=== PATIENT | female | born 1960 | race Two or more races ===

== ENCOUNTER 2022-09-25 12:12 | Emergency (ER) | payer OTHER, SELFPAY ==
[2022-09-25] MEDS ORDERED: Ketorolac Tromethamine 30 MG/ML VIAL ONE (13:11)
== END 2022-09-25 17:06 | disposition home or self-care (01) ==
LOC: ERS 12:12
DX: S52.302A Unspecified fracture of shaft of left radius, initial encounter for closed fracture (principal); I10 Essential (primary) hypertension; E11.9 Type 2 diabetes mellitus without complications; E78.5 Hyperlipidemia, unspecified; W01.0XXA Fall on same level from slipping, tripping and stumbling without subsequent striking against object, initial encounter
CPT/HCPCS: 29125; 96374; J1885

== ENCOUNTER 2022-10-01 10:01 | Inpatient (IN) | payer OTHER, BC ==
[2022-10-01] MEDS ORDERED: Acetaminophen 500 MG TAB ONE (10:35)
[2022-10-01 15:33] LABS: #Basophils 0.1 thou/uL (0.0-0.2); #Eosinphils 0.1 thou/uL (0.0-0.7); #Lymphocytes 1.9 thou/uL (1.20-3.40); #Monocytes 0.4 thou/uL (0.11-0.59); #Neutrophils 5.9 thou/uL (1.40-6.50); %Basophils 0.6 % (0.0-1.0); %Eosinophils 1.2 % (0.0-10.0); %Lymphocytes 22.6 % (21.0-51.0); %Monocytes 4.8 % (0.0-10.0); %Neutrophils 70.8 % (42.0-75.0); Mean Corpuscular HGB CONC 32.4 g/dL (32.0-36.0); Mean Corpuscular Hemoglobin 30.5 pg (27.0-31.0); Mean Platelet Volume 8.1 fL (7.4-10.4); Platelet Count 235 thou/uL (130-400); RBC Distribution Width 11.9 % (11.5-14.5); Red Blood Cell (RBC) Count 4.27 mill/uL (4.20-5.40); White Blood Cell (WBC) Count 8.3 thou/uL (4.8-10.8)
[2022-10-01 15:54] LABS: ALT (SGPT) 30 U/L (8-55); AST (SGOT) 23 U/L (5-34); Albumin 3.8 g/dL (3.4-4.8); Alkaline Phosphatase 58 U/L (40-110); Anion Gap 10 mmol/L (10-20); BUN (Urea Nitrogen) 17 mg/dL (9.8-20.1); Bilirubin, Total 0.5 mg/dL (0.2-1.2); Calc. Creatinine Clearance 0 mL/min (70-130); Calcium 9.1 mg/dL (7.8-10.44); Carbon Dioxide 28 mmol/L (23-31); Chloride 105 mmol/L (98-107); Estimated GFR 94; Globulin 2.6 g/dL (2.4-3.5); Glucose 132 mg/dL (80-115); Magnesium 1.8 mg/dL (1.6-2.6); Potassium 3.9 mmol/L (3.5-5.1); Protein, Total 6.4 g/dL (5.8-8.1); Sodium 139 mmol/L (136-145)
[2022-10-01] MEDS ORDERED: Dextrose 5% in Water 1,000 ML IV PRN (16:20)
[2022-10-01] MEDS ORDERED: Insulin Regular 300 UNITS/3 ML VIAL SC PRN ×2 (16:20)
[2022-10-01] MEDS ORDERED: TETANUS, DIPHTHERIA TOX,ADULT (TDVAX) 0.5 ML VIAL IM ONE (16:20)
[2022-10-01] MEDS ORDERED: Dextrose 50% Abboject 50 ML SYRINGE SLOW IVP PRN (16:20)
[2022-10-01] MEDS ORDERED: Ondansetron PF 4 MG/2 ML Vial IVP PRN (16:20)
[2022-10-01] MEDS: Morphine 4 MG/ML VIAL SLOW IVP PRN (19:29)
[2022-10-01] MEDS: traMADol HCl 50 MG TAB PO SCH ×2 (22:00→23:00)
[2022-10-01] MEDS: Acetaminophen 500 MG TAB PO SCH ×2 (22:00→23:00)
[2022-10-01] MEDS: Gabapentin 300 MG CAP PO SCH (22:02)
[2022-10-01] MEDS: Senokot S 8.6-50 MG TAB PO SCH (22:02)
[2022-10-01] MEDS: Famotidine 20 MG TAB PO SCH (22:02)
[2022-10-01] MEDS: Cyclobenzaprine 10 MG TAB PO PRN (22:14)
[2022-10-01 22:39] VITALS: BMI 45.8
[2022-10-01 23:41] LABS: SARS-CoV-2 NAA Rapid Test Not Detected (NotDetected)
[2022-10-02] MEDS ORDERED: Sodium Chloride 0.9% 1,000 ML IV SCH ×2 (00:01→16:15)
[2022-10-02] MEDS ORDERED: CEFAZOLIN 2 GM in Sodium Chloride 0.9% 100 ML IVPB SCH (04:15)
[2022-10-02 05:37] LABS: #Eosinphils 0.3 thou/uL (0.0-0.7); #Lymphocytes 2.7 thou/uL (1.20-3.40); #Monocytes 0.7 thou/uL (0.11-0.59); #Neutrophils 6.9 thou/uL (1.40-6.50); %Basophils 0.5 % (0.0-1.0); %Eosinophils 2.4 % (0.0-10.0); %Lymphocytes 25.6 % (21.0-51.0); %Monocytes 6.4 % (0.0-10.0); %Neutrophils 65.2 % (42.0-75.0); Hemoglobin 15.1 g/dL (12.0-16.0); Mean Corpuscular HGB CONC 32.8 g/dL (32.0-36.0); Mean Corpuscular Hemoglobin 31.2 pg (27.0-31.0); Mean Corpuscular Volume 95.1 fl (78.0-98.0); Mean Platelet Volume 8.1 fL (7.4-10.4); Platelet Count 245 thou/uL (130-400); Red Blood Cell (RBC) Count 4.83 mill/uL (4.20-5.40); White Blood Cell (WBC) Count 10.6 thou/uL (4.8-10.8)
[2022-10-02] MEDS: traMADol HCl 50 MG TAB PO SCH ×4 (05:41→23:31)
[2022-10-02] MEDS: Acetaminophen 500 MG TAB PO SCH ×4 (05:41→23:32)
[2022-10-02 05:43] LABS: INR-International Normal Ratio 1.1; PTT 33.7 sec (22.9-36.1); Prothrombin Time 14.3 sec (12.0-14.7)
[2022-10-02] MEDS ORDERED: Clindamycin/D5W 900 MG in Premix Bag 1 BAG IVPB SCH (06:00)
[2022-10-02 06:22] LABS: Anion Gap 13 mmol/L (10-20); BUN (Urea Nitrogen) 14 mg/dL (9.8-20.1); Calc. Creatinine Clearance 161 mL/min (70-130); Calcium 9.2 mg/dL (7.8-10.44); Carbon Dioxide 20 mmol/L (23-31); Chloride 106 mmol/L (98-107); Estimated GFR 98; Glucose 128 mg/dL (80-115); Magnesium 1.8 mg/dL (1.6-2.6); Phosphorus 3.8 mg/dL (2.3-4.7); Potassium 4.3 mmol/L (3.5-5.1); Sodium 135 mmol/L (136-145)
[2022-10-02 06:28] LABS: Bacteria/HPF None Seen HPF (None Seen); Bilirubin Negative (Negative); Blood, Urine Negative (Negative); Clarity Clear (Clear); Glucose, Urine (Dipstick) Normal (Negative); Ketone, Urine Trace mg/dL (Negative); Leukocyte Negative Leu/uL (Negative); Nitrite Negative (Negative); Protein, Urine (Dipstick) Negative (Neg-Trace); RBC/HPF None Seen HPF (0-3); Specific Gravity, Urine 1.022 (1.002-1.036); Squamous Epithelial None Seen HPF (0-3); Urobilinogen Normal mg/dL (Less than 2); WBC/HPF 0-3 HPF (0-3); pH, Urine 5.5 (5.0-9.0)
[2022-10-02] MEDS ORDERED: fentaNYL PF 100 MCG/2 ML SYRINGE ONE (06:43)
[2022-10-02] MEDS ORDERED: Midazolam HCl 2 mg/2 ml Vial ONE ×2 (07:02→07:11)
[2022-10-02] MEDS ORDERED: FENTANYL 50 MCG/ML 1 ML VIAL ONE ×2 (07:02→07:11)
[2022-10-02] MEDS ORDERED: Ropivacaine 0.5% HCl/PF (150 MG/30 ML VIAL) ONE (07:02)
[2022-10-02] MEDS ORDERED: NEOSTIGMINE 3 MG/3 ML SYR 3 MG/3 ML SYRINGE ONE (07:15)
[2022-10-02] MEDS ORDERED: Ketorolac Tromethamine 30 MG/ML VIAL ONE (07:15)
[2022-10-02] MEDS ORDERED: Glycopyrrolate 0.2 MG/ML 5 ML SYRINGE ONE (07:15)
[2022-10-02] MEDS ORDERED: Rocuronium Bromide 10 MG/ML (10ML VIAL) ONE (07:15)
[2022-10-02] MEDS ORDERED: diphenhydrAMINE 50 MG/ML VIAL ONE (07:15)
[2022-10-02] MEDS ORDERED: PROPOFOL 200 MG/20 ML VIAL ONE (07:15)
[2022-10-02] MEDS ORDERED: Ondansetron PF 4 MG/2 ML Vial ONE (07:15)
[2022-10-02] MEDS ORDERED: Clindamycin/D5W 900 mg/50 ml Premix Bag ONE (07:22)
[2022-10-02] MEDS ORDERED: Promethazine HCl 25 MG/ML VIAL IVPB PRN (07:41)
[2022-10-02] MEDS ORDERED: Promethazine HCl 25 MG/ML VIAL IM PRN (07:41)
[2022-10-02] MEDS ORDERED: Meperidine HCl/PF 25 MG/ML VIAL SLOW IVP PRN (07:41)
[2022-10-02] MEDS ORDERED: HYDROmorphone 2 MG/ML VIAL SLOW IVP PRN (07:41)
[2022-10-02] MEDS ORDERED: FLU VACC QS2022-23(6MOS UP)/PF 60 MCG/0.5 ML SYRINGE IM ONE (09:00)
[2022-10-02] MEDS: Senokot S 8.6-50 MG TAB PO SCH ×2 (12:05→20:27)
[2022-10-02] MEDS: Gabapentin 300 MG CAP PO SCH ×3 (12:05→20:25)
[2022-10-02] MEDS: Famotidine 20 MG TAB PO SCH ×2 (12:06→20:24)
[2022-10-02] MEDS: Polyethylene Glycol 3350 17 GM Packet PO SCH (15:53)
[2022-10-02] MEDS: Clindamycin/D5W 900 MG in Premix Bag 1 BAG IVPB SCH ×2 (16:01→23:33)
[2022-10-02] MEDS ORDERED: Sodium Chloride 0.9% 500 ML IV SCH (16:30)
[2022-10-02] MEDS: Sodium Chloride 0.9% 1,000 ML IV SCH (17:04)
[2022-10-02] MEDS: traMADol HCl 50 MG TAB PO PRN (20:24)
[2022-10-03] MEDS: Morphine 4 MG/ML VIAL SLOW IVP PRN ×2 (00:46→03:29)
[2022-10-03] MEDS: Sodium Chloride 0.9% 1,000 ML IV SCH ×2 (00:58→07:19)
[2022-10-03] MEDS: Acetaminophen 500 MG TAB PO SCH ×3 (05:24→17:06)
[2022-10-03] MEDS: traMADol HCl 50 MG TAB PO SCH ×3 (05:26→17:07)
[2022-10-03 06:36] LABS: #Eosinphils 0.2 thou/uL (0.0-0.7); #Lymphocytes 1.9 thou/uL (1.20-3.40); #Monocytes 0.8 thou/uL (0.11-0.59); %Basophils 0.4 % (0.0-1.0); %Eosinophils 1.9 % (0.0-10.0); %Lymphocytes 17.5 % (21.0-51.0); %Monocytes 7.5 % (0.0-10.0); %Neutrophils 72.7 % (42.0-75.0); Mean Corpuscular HGB CONC 32.6 g/dL (32.0-36.0); Mean Corpuscular Hemoglobin 30.8 pg (27.0-31.0); Mean Corpuscular Volume 94.4 fl (78.0-98.0); Mean Platelet Volume 8.4 fL (7.4-10.4); Platelet Count 196 thou/uL (130-400); Red Blood Cell (RBC) Count 3.57 mill/uL (4.20-5.40)
[2022-10-03 06:54] LABS: Anion Gap 11 mmol/L (10-20); BUN (Urea Nitrogen) 16 mg/dL (9.8-20.1); Calc. Creatinine Clearance 157 mL/min (70-130); Calcium 8.5 mg/dL (7.8-10.44); Carbon Dioxide 24 mmol/L (23-31); Chloride 102 mmol/L (98-107); Estimated GFR 95; Glucose 134 mg/dL (80-115); Magnesium 1.6 mg/dL (1.6-2.6); Phosphorus 3.2 mg/dL (2.3-4.7); Potassium 3.9 mmol/L (3.5-5.1); Sodium 133 mmol/L (136-145)
[2022-10-03] MEDS ORDERED: Potassium Chloride 20 MEQ TAB PO SCH (08:30)
[2022-10-03] MEDS: Clindamycin/D5W 900 MG in Premix Bag 1 BAG IVPB SCH (08:30)
[2022-10-03] MEDS: Atorvastatin Calcium 20 MG TAB PO SCH (08:31)
[2022-10-03] MEDS: Magnesium Oxide 400 MG TAB PO SCH (08:31)
[2022-10-03] MEDS: Famotidine 20 MG TAB PO SCH ×2 (08:31→20:21)
[2022-10-03] MEDS: Senokot S 8.6-50 MG TAB PO SCH ×2 (08:31→20:21)
[2022-10-03] MEDS: FLUoxetine HCl 20 MG CAP PO SCH (08:31)
[2022-10-03] MEDS: Ascorbic Acid 500 mg Chewable Tablet PO SCH ×2 (09:04→20:20)
[2022-10-03] MEDS: Cyclobenzaprine 10 MG TAB PO PRN (09:04)
[2022-10-03] MEDS: Gabapentin 300 MG CAP PO SCH ×3 (09:53→20:20)
[2022-10-03] MEDS: traMADol HCl 50 MG TAB PO PRN ×2 (12:54→17:08)
[2022-10-03] MEDS: Ferrous Sulfate 325 MG TAB PO SCH (17:05)
[2022-10-03] MEDS: Polyethylene Glycol 3350 17 GM Packet PO SCH (17:05)
[2022-10-04] MEDS: traMADol HCl 50 MG TAB PO SCH ×5 (00:03→23:22)
[2022-10-04] MEDS: Acetaminophen 500 MG TAB PO SCH ×5 (00:05→23:22)
[2022-10-04] MEDS: traMADol HCl 50 MG TAB PO PRN (04:52)
[2022-10-04 06:30] LABS: #Eosinphils 0.3 thou/uL (0.0-0.7); #Lymphocytes 1.9 thou/uL (1.20-3.40); #Monocytes 0.7 thou/uL (0.11-0.59); #Neutrophils 5.3 thou/uL (1.40-6.50); %Basophils 0.5 % (0.0-1.0); %Eosinophils 3.6 % (0.0-10.0); %Monocytes 8.2 % (0.0-10.0); %Neutrophils 64.7 % (42.0-75.0); Hemoglobin 11.6 g/dL (12.0-16.0); Mean Corpuscular HGB CONC 32.1 g/dL (32.0-36.0); Mean Corpuscular Hemoglobin 30.8 pg (27.0-31.0); Mean Corpuscular Volume 95.8 fl (78.0-98.0); Mean Platelet Volume 8.4 fL (7.4-10.4); Platelet Count 187 thou/uL (130-400); RBC Distribution Width 11.8 % (11.5-14.5); Red Blood Cell (RBC) Count 3.77 mill/uL (4.20-5.40); White Blood Cell (WBC) Count 8.2 thou/uL (4.8-10.8)
[2022-10-04 06:52] LABS: Anion Gap 10 mmol/L (10-20); BUN (Urea Nitrogen) 10 mg/dL (9.8-20.1); Calc. Creatinine Clearance 153 mL/min (70-130); Calcium 8.8 mg/dL (7.8-10.44); Carbon Dioxide 24 mmol/L (23-31); Chloride 107 mmol/L (98-107); Estimated GFR 92; Glucose 124 mg/dL (80-115); Magnesium 1.7 mg/dL (1.6-2.6); Phosphorus 2.9 mg/dL (2.3-4.7); Potassium 4.1 mmol/L (3.5-5.1); Sodium 137 mmol/L (136-145)
[2022-10-04] MEDS ORDERED: PHOS-NAK 1 PKT PACK PO SCH (08:00)
[2022-10-04] MEDS ORDERED: Magnesium 2 GM/50 ML(in water) 2 GM in Premix Bag 1 BAG IVPB SCH (08:00)
[2022-10-04] MEDS: Senokot S 8.6-50 MG TAB PO SCH ×2 (08:00→20:12)
[2022-10-04] MEDS: Ascorbic Acid 500 mg Chewable Tablet PO SCH ×2 (08:13→20:11)
[2022-10-04] MEDS: FLUoxetine HCl 20 MG CAP PO SCH (08:13)
[2022-10-04] MEDS: Polyethylene Glycol 3350 17 GM Packet PO SCH (08:14)
[2022-10-04] MEDS: Gabapentin 300 MG CAP PO SCH ×3 (08:14→20:10)
[2022-10-04] MEDS: Ferrous Sulfate 325 MG TAB PO SCH ×2 (08:15→16:06)
[2022-10-04] MEDS: Magnesium Oxide 400 MG TAB PO SCH (08:15)
[2022-10-04] MEDS: Famotidine 20 MG TAB PO SCH ×2 (08:15→20:11)
[2022-10-04] MEDS: Atorvastatin Calcium 20 MG TAB PO SCH (08:15)
[2022-10-04] MEDS: Enoxaparin Sodium 40 MG/0.4 ML SYRINGE SC SCH (08:16)
[2022-10-04] MEDS: metFORMIN 500 MG TAB PO SCH (16:06)
[2022-10-04] MEDS: glyBURIDE 5 MG TAB PO SCH (16:06)
[2022-10-05] MEDS: traMADol HCl 50 MG TAB PO SCH ×4 (06:13→23:56)
[2022-10-05] MEDS: glyBURIDE 5 MG TAB PO SCH ×2 (06:13→16:28)
[2022-10-05] MEDS: Acetaminophen 500 MG TAB PO SCH ×4 (06:14→23:56)
[2022-10-05] MEDS: Pioglitazone HCl 15 MG TAB PO SCH (08:05)
[2022-10-05] MEDS: Famotidine 20 MG TAB PO SCH ×2 (08:07→20:38)
[2022-10-05] MEDS: Gabapentin 300 MG CAP PO SCH ×3 (08:07→20:38)
[2022-10-05] MEDS: Ferrous Sulfate 325 MG TAB PO SCH ×3 (08:07→20:38)
[2022-10-05] MEDS: metFORMIN 500 MG TAB PO SCH ×2 (08:07→16:29)
[2022-10-05] MEDS: Magnesium Oxide 400 MG TAB PO SCH (08:08)
[2022-10-05] MEDS: Senokot S 8.6-50 MG TAB PO SCH ×2 (08:08→20:38)
[2022-10-05] MEDS: FLUoxetine HCl 20 MG CAP PO SCH (08:08)
[2022-10-05] MEDS: Atorvastatin Calcium 20 MG TAB PO SCH (08:08)
[2022-10-05] MEDS: Ascorbic Acid 500 mg Chewable Tablet PO SCH ×2 (08:09→20:38)
[2022-10-05] MEDS: Enoxaparin Sodium 40 MG/0.4 ML SYRINGE SC SCH (08:09)
[2022-10-05] MEDS: Polyethylene Glycol 3350 17 GM Packet PO SCH (08:09)
[2022-10-06] MEDS: Acetaminophen 500 MG TAB PO SCH ×3 (05:29→17:45)
[2022-10-06] MEDS: traMADol HCl 50 MG TAB PO SCH ×3 (05:29→17:45)
[2022-10-06] MEDS: glyBURIDE 5 MG TAB PO SCH (05:30)
[2022-10-06] MEDS: Ferrous Sulfate 325 MG TAB PO SCH ×2 (08:37→08:38)
[2022-10-06] MEDS: Pioglitazone HCl 15 MG TAB PO SCH (08:37)
[2022-10-06] MEDS: Gabapentin 300 MG CAP PO SCH ×2 (08:38→16:21)
[2022-10-06] MEDS: FLUoxetine HCl 20 MG CAP PO SCH (08:38)
[2022-10-06] MEDS: Polyethylene Glycol 3350 17 GM Packet PO SCH (08:39)
[2022-10-06] MEDS: Senokot S 8.6-50 MG TAB PO SCH (08:39)
[2022-10-06] MEDS: Enoxaparin Sodium 40 MG/0.4 ML SYRINGE SC SCH (08:39)
[2022-10-06] MEDS: Magnesium Oxide 400 MG TAB PO SCH (08:39)
[2022-10-06] MEDS: Ascorbic Acid 500 mg Chewable Tablet PO SCH (08:39)
[2022-10-06] MEDS: metFORMIN 500 MG TAB PO SCH ×2 (08:40→16:21)
[2022-10-06] MEDS: Famotidine 20 MG TAB PO SCH (08:40)
[2022-10-06] MEDS: Atorvastatin Calcium 20 MG TAB PO SCH (08:40)
[2022-10-06] MEDS: traMADol HCl 50 MG TAB PO PRN (08:52)
[2022-10-07 02:38] VITALS: BP 128/75; TEMP 98.1
== END 2022-10-06 19:00 | DRG 511 ==
LOC: ERS 10:01 → SURG B 16:24
PROVIDERS: ADMIT Specialist; ATTEND Specialist
PROC: 2W3QXYZ Immobilization of Right Lower Leg using Other Device (ICD-10-PCS; 2022-10-01)
PROC: 0PSJ04Z Reposition Left Radius with Internal Fixation Device, Open Approach (ICD-10-PCS; principal; 2022-10-02)
DX: S52.302A Unspecified fracture of shaft of left radius, initial encounter for closed fracture (principal); D62 Acute posthemorrhagic anemia; E87.1 Hypo-osmolality and hyponatremia; Z68.42 Body mass index [BMI] 45.0-49.9, adult; Z20.822 Contact with and (suspected) exposure to COVID-19; W01.0XXA Fall on same level from slipping, tripping and stumbling without subsequent striking against object, initial encounter; E11.9 Type 2 diabetes mellitus without complications; I10 Essential (primary) hypertension; E78.5 Hyperlipidemia, unspecified; G89.29 Other chronic pain; M54.9 Dorsalgia, unspecified; S89.101A Unspecified physeal fracture of lower end of right tibia, initial encounter for closed fracture; E66.9 Obesity, unspecified; E83.42 Hypomagnesemia; M54.2 Cervicalgia; Z88.1 Allergy status to other antibiotic agents; Z88.0 Allergy status to penicillin; Z88.8 Allergy status to other drugs, medicaments and biological substances; Z79.84 Long term (current) use of oral hypoglycemic drugs; Z90.89 Acquired absence of other organs
CPT/HCPCS: 36415; 36416; 71045; 80048; 80053; 81001; 83735; 84100; 85025; 85610; 85730; 90471; 90686; 93005; 93010; C1713; G0008; G0390; J1200; J1650; J1885; J2250; J2270; J2405; J2704; J2795; J3010; J3475; J3490; J7030; J7050; U0002